=== PATIENT | female | born 1970 | race Caucasian/White ===

== ENCOUNTER → 2020-06-26 10:39 | Outpatient (CLI) | payer BC ==
[2020-06-26 11:02] LABS: BASOPHILS 0.5 % (0-2); EOSINOPHILS 4.5 % (0-7); HEMATOCRIT 44.4 % (36.0-48.0); IMMATURE GRANULOCYTES 0.2 % (0-5); LYMPHOCYTE ABS# 2.26 10x3/uL (1.18-3.74); LYMPHOCYTES 35.4 % (15-50); MCH 30.5 pg (26.0-34.0); MCHC 33.8 g/dL (31.0-37.0); MCV 90.2 fL (80.0-100.0); MEAN PLATELET VOLUME 11.2 fL (7.4-10.4); MONOCYTES 12.1 % (2-11); NEUTROPHIL ABS# 3.03 10x3/uL (1.56-6.13); NEUTROPHILS 47.3 % (40-80); PLATELET COUNT 231 10x3/uL (130-400); RBC 4.92 10x6/uL (4.00-5.40); RDW 12.9 % (11.5-14.5); WBC 6.4 10x3/uL (4.8-10.8)
== END | disposition home or self-care (01) ==
LOC: D.LAB 10:39
PROVIDERS: ATTEND Psychiatry & Neurology Neurology
DX: G43.909 Migraine, unspecified, not intractable, without status migrainosus (principal)